=== PATIENT | male | born 1940 ===

== ENCOUNTER 2022-03-24 06:05 | Day surgery (SDC) | payer OTHER | END 2022-03-24 11:00 | disposition home or self-care (01) | LOC: AMB-ENDOS 06:05 → CIR.AMB 13:15 | PROVIDERS: ATTEND Colon & Rectal Surgery | DX: C18.7 Malignant neoplasm of sigmoid colon (principal); Z20.822 Contact with and (suspected) exposure to COVID-19; K64.1 Second degree hemorrhoids; I10 Essential (primary) hypertension ==